=== PATIENT | female | born 1990 | race Hispanic/Latino ===

== ENCOUNTER 2019-04-15 22:29 | Emergency (ER) | payer SELFPAY ==
[~2019-04-15] VITALS: Ht 154.9 cm; Wt 94.8 kg
--- OUTSIDE RECORDS SUMMARY | 2019-04-15 22:32 | XMS REPORT | Clinical Summary ---
Author Author [facility] [place] [facility] Address Unknown Phone Unavailable Care Team Providers Care Supervisor Cloth Winding Name Role Phone Asked, No Pcp PCP Unavailable Allergies No Known Allergies Medications End Date Status Medication Sig Dispensed Refills Start Date 12/08/2018 Discontinued labetalol (NORMODYNE) 200 Take 2 120 tablet 0 MG tablet tablets (400 9 mg total) by mouth 2 (two) times a day for 30 days. 12/08/2018 Discontinued amLODIPine (NORVASC) 5 mg Take 1 tablet 30 tablet 0 tablet (5 mg total) 9 by mouth daily for 30 days. 01/05/2019 ferrous sulfate 325 (65 Take 1 tablet 90 tablet 0 FE) MG tablet (325 mg 9 total) by mouth 3 (three) times a day with meals for 30 days. 01/05/2019 docusate sodium (COLACE) Take 1 60 capsule 0 100 MG capsule capsule (100 9 mg total) by mouth 2 (two) times a day for 30 days. 01/05/2019 ibuprofen (ADVIL,MOTRIN) Take 1 tablet 30 tablet 0 600 MG tablet (600 mg 9 total) by mouth every 6 (six) hours as needed for moderate pain for up to 30 days. 01/07/2019 NIFEdipine XL (PROCARDIA Take 1 tablet 30 tablet 0 XL) 90 MG 24 hr tablet (90 mg total) 9 by mouth daily for 30 days. 12/15/2018 HYDROcodone-acetaminophen Take 1 tablet 30 tablet 0 (NORCO) 7.5-325 mg per by mouth 9 tablet every 6 (six) hours as needed for moderate pain for up to 7 days. Max Daily Amount: 4 tablets Active Problems Problem Noted Date Late care 12/08/2018 35 weeks gestation of 12/08/2018 Dichorionic diamniotic twin in third trimester 12/08/2018 12/02/2018 Encounters Care Team Description Date Type Specialty Volodymyr Soto MD 12/02/2018 Anesthesia Obstetrics and Gynecology Event Ailyn Mirza MD complication (Primary Dx); Postoperative complication of section; Pre-eclampsia, antepartum 12/02/2018 Hospital Obstetrics and Gynecology - Encounter 12/08/2018 Ailyn Mirza MD DELIVERY, 12/02/2018 Surgery Obstetrics and Gynecology after 04/14/2018 Immunizations Name Dates Previously Given Next Due FLUCELVAX QUAD PF (0.5mL 12/03/2018 syringe) Tdap 12/03/2018 Family History Relation Name Status Comments Brother Brother Alive Brother Alive Father Mother Alive Sister Alive Sister Alive Sister Alive Social History Date Tobacco Use Types Packs/Day Years Used Never Smoker Smokeless Tobacco: Never Used Alcohol Use Drinks/Week oz/Week Comments No Alcohol Habits Answer Date Recorded How often do you have a drink containing alcohol? Never 12/02/2018 How many drinks containing alcohol do you have on Not asked a typical day when you are drinking? How often do you have six or more drinks on one Not asked occasion? Sex Assigned at Date Recorded Not on file Industry Job Start Date Occupation Not on file Not on file Not on file Travel End Travel History Travel Start No recent travel history available. Last Filed Vital Signs Time Taken Vital Sign Reading 12/08/2018 8:58 AM THERAPY ADMINISTRATIVE ASSISTANT Blood Pressure 125/78 12/08/2018 8:56 AM THERAPY ADMINISTRATIVE ASSISTANT Pulse 97 12/08/2018 7:29 AM THERAPY ADMINISTRATIVE ASSISTANT Temperature 36.4 C (97.5 F) 12/08/2018 7:30 AM THERAPY ADMINISTRATIVE ASSISTANT Respiratory Rate 18 12/08/2018 6:16 AM THERAPY ADMINISTRATIVE ASSISTANT Oxygen Saturation 98% - Inhaled Oxygen - Concentration 12/02/2018 3:25 PM THERAPY ADMINISTRATIVE ASSISTANT Weight 99.8 kg (220 lb) 12/02/2018 3:25 PM THERAPY ADMINISTRATIVE ASSISTANT Height 154.9 cm (5' 1") 12/02/2018 3:25 PM THERAPY ADMINISTRATIVE ASSISTANT Body Mass Index 41.57 Plan of Treatment Health Maintenance Due Date Last Done Comments INFLUENZA VACCINE 05/15/2019 12/03/2018 Procedures Comments Procedure Name Priority Date/Time Associated Diagnosis HC COMPLETE BLD COUNT Routine 12/07/2018 W/AUTO DIFF 7:30 AM THERAPY ADMINISTRATIVE ASSISTANT HC COMPLETE BLD COUNT Routine 12/04/2018 W/AUTO DIFF 5:53 AM THERAPY ADMINISTRATIVE ASSISTANT MAGNESIUM, THERAPEUTIC Timed 12/03/2018 3:14 PM THERAPY ADMINISTRATIVE ASSISTANT MAGNESIUM, THERAPEUTIC Timed 12/03/2018 9:04 AM THERAPY ADMINISTRATIVE ASSISTANT HC COMPLETE BLD COUNT Routine 12/03/2018 W/AUTO DIFF 5:01 AM THERAPY ADMINISTRATIVE ASSISTANT MAGNESIUM, THERAPEUTIC Timed 12/03/2018 3:05 AM THERAPY ADMINISTRATIVE ASSISTANT URINE CULTURE Routine 12/02/2018 10:04 PM THERAPY ADMINISTRATIVE ASSISTANT GRAM STAIN Routine 12/02/2018 10:04 PM THERAPY ADMINISTRATIVE ASSISTANT MAGNESIUM, THERAPEUTIC Timed 12/02/2018 9:24 PM THERAPY ADMINISTRATIVE ASSISTANT HEMATOCRIT Routine 12/02/2018 9:24 PM THERAPY ADMINISTRATIVE ASSISTANT HEMOGLOBIN Routine 12/02/2018 9:24 PM THERAPY ADMINISTRATIVE ASSISTANT URINALYSIS SCREEN AND Routine 12/02/2018 MICROSCOPY, WITH REFLEX 9:00 PM THERAPY ADMINISTRATIVE ASSISTANT TO CULTURE TRANSFUSE RED BLOOD CELLS Routine 12/02/2018 7:18 PM THERAPY ADMINISTRATIVE ASSISTANT SURGICAL PATHOLOGY Routine 12/02/2018 REQUEST 5:59 PM THERAPY ADMINISTRATIVE ASSISTANT AK AN SPINAL BLOCK Routine 12/02/2018 POST-OP PAIN 5:52 PM THERAPY ADMINISTRATIVE ASSISTANT Procedure Note - Volodymyr Soto MD - 12/02/2018 5:52 PM THERAPY ADMINISTRATIVE ASSISTANT Spinal Block Date/Time: 12/02/2018 5:25 PM Performed by: Volodymyr Soto MD Authorized by: Volodymyr Soto MD Patient Location: OB Start Time: 12/02/2018 5:30 PM End Time: 12/02/2018 5:34 PM Reason for Block: post-op pain management , primary anesthetic Staff: Anesthesio logist: Volodymyr Soto MD Performed by: Anesthesio logist Preprocedu re: patient identified , IV checked, site and side verified, risks and benefits discussed, procedure verified, surgical consent complete, patient position confirmed, monitors and equipment checked, pre-op evaluation complete and coagulatio n status reviewed TIme Out Performed: 12/02/2018 5:30 PM Spinal Block: Patient Position: Sitting Prep: Betadine and patient draped Monitoring : Blood pressure monitoring , continuous pulse oximetry and heart rate Approach: Midline Interspace : L3-4 Injection Technique: Single injection Needle: Needle Type: Pencil-tip Needle Gauge: 25 G Assessment : Block assessment : No apparent complicati ons and patient tolerated procedure well Post procedure: Patient returned to supine position Medication s Administer ed Bupivacain e 0.75% PF (mL), 1.5 mL morPHINE 1 mg/mL PF, 0.2 mg CORD BLOOD GAS, VENOUS STAT 12/02/2018 5:52 PM THERAPY ADMINISTRATIVE ASSISTANT CORD BLOOD GAS, ARTERIAL STAT 12/02/2018 5:52 PM THERAPY ADMINISTRATIVE ASSISTANT CORD BLOOD GAS, ARTERIAL STAT 12/02/2018 5:50 PM THERAPY ADMINISTRATIVE ASSISTANT CORD BLOOD GAS, VENOUS STAT 12/02/2018 5:50 PM THERAPY ADMINISTRATIVE ASSISTANT TRANSFUSE RED BLOOD CELLS Routine 12/02/2018 5:48 PM THERAPY ADMINISTRATIVE ASSISTANT URINE DRUGS OF ABUSE Routine 12/02/2018 SCREEN 5:13 PM THERAPY ADMINISTRATIVE ASSISTANT US LIMITED STAT 12/02/2018 2:50 PM THERAPY ADMINISTRATIVE ASSISTANT US LIMITED STAT 12/02/2018 2:50 PM THERAPY ADMINISTRATIVE ASSISTANT PREPARE RBC STAT 12/02/2018 1:13 PM THERAPY ADMINISTRATIVE ASSISTANT PREPARE RBC STAT 12/02/2018 1:13 PM THERAPY ADMINISTRATIVE ASSISTANT RUBELLA AB IGG Routine 12/02/2018 1:13 PM THERAPY ADMINISTRATIVE ASSISTANT COMPREHENSIVE METABOLIC STAT 12/02/2018 PANEL 1:13 PM THERAPY ADMINISTRATIVE ASSISTANT PARTIAL THROMBOPLASTIN STAT 12/02/2018 TIME (PTT) 1:13 PM THERAPY ADMINISTRATIVE ASSISTANT ESTIMATED GFR STAT 12/02/2018 1:13 PM THERAPY ADMINISTRATIVE ASSISTANT HEPATITIS B SURFACE Routine 12/02/2018 ANTIGEN 1:13 PM THERAPY ADMINISTRATIVE ASSISTANT HIV 1, 2 ANTIBODY STAT 12/02/2018 1:13 PM THERAPY ADMINISTRATIVE ASSISTANT SYPHILIS TREPONEMAL IGG STAT 12/02/2018 1:13 PM THERAPY ADMINISTRATIVE ASSISTANT BASIC METABOLIC PANEL STAT 12/02/2018 1:13 PM THERAPY ADMINISTRATIVE ASSISTANT CBC HEMOGRAM STAT 12/02/2018 1:13 PM THERAPY ADMINISTRATIVE ASSISTANT TYPE AND SCREEN, STAT 12/02/2018 OBSTETRICAL PATIENT 1:13 PM THERAPY ADMINISTRATIVE ASSISTANT DELIVERY, 12/02/2018 Multiple Gestation Case Notes Pre-Eclamp manny, unknown twin gestation after 04/14/2018 Results * CBC with platelet and differential (12/07/2018 7:30 AM THERAPY ADMINISTRATIVE ASSISTANT) Only the most recent of 3 results within the time period is included. WBC 11.6 (H) 4.2 - 11.0 k/uL [facility] RBC 3.35 (L) 4.04 - 5.86 m/uL [facility] HGB 8.3 (L) 11.5 - 15.3 g/dL [facility] HCT 29.2 (L) 34.0 - 45.0 % [facility] MCV 87.2 80.0 - 98.0 fL [facility] MCH 24.8 (L) 27.0 - 34.0 pg [facility] MCHC 28.4 (L) 31.5 - 36.5 g/dL [facility] RDW - SD 58.2 (H) 37.0 - 51.0 fL [facility] MPV 9.6 7.4 - 10.4 fL [facility] Platelet count 269 150 - 400 k/uL [facility] Nucleated RBC 0.50 /100 WBC [facility] Neutrophils 63.0 36.0 - 66.0 % [facility] Lymphocytes 25.2 24.0 - 44.0 % [facility] Monocytes 6.1 (H) 0.0 - 6.0 % [facility] Eosinophils 2.5 0.0 - 6.0 % [facility] Basophils 0.3 0.0 - 1.2 % [facility] Immature 2.9 (H) 0.0 - 1.0 % [place] granulocytes [facility] Specimen Blood Performing Organization Address City/[facility]/Zipcode Phone Number [facility] DE[facility] [address] [place] [address] PATHOLOGY AND GENOMIC MEDICINE [address] * Magnesium, therapeutic (12/03/2018 3:14 PM THERAPY ADMINISTRATIVE ASSISTANT) Only the most recent of 4 results within the time period is included. Magnesium, 7.0 4.5 - 7.9 [place] therapeutic [facility] Specimen Plasma specimen Performing Organization Address [facility] [place] [address] PATHOLOGY AND GENOMIC MEDICINE [address] * Gram stain (12/02/2018 10:04 PM THERAPY ADMINISTRATIVE ASSISTANT) Gram stain No WBC's [place] result Rare Gram negative rods [facility] Comment: HOSPITAL Specimen Information Specimen Source: Urine Specimen Site: Clean catch Specimen Urine Performing Organization Address City/[facility] Phone Number [facility] DEPARTMENT OF [address] [place] [address] PATHOLOGY AND GENOMIC MEDICINE [place] [facility] [address] [place] [address] HOSPITAL * Urine culture (12/02/2018 10:04 PM THERAPY ADMINISTRATIVE ASSISTANT) Urine culture Escherichia coli [place] isolate colony count undetermined, [facility] probably due to inhibiting HOSPITAL substance. (A) Comment: Specimen Information Specimen Source: Urine Specimen Site: Clean catch Specimen Urine Antibiotic Method Susceptibility Organism Ampicillin STONE >16 mcg/mL: Resistant Escherichia coli Amoxicillin/Clavulanate STONE 8/4 mcg/mL: Susceptible Escherichia coli Amikacin STONE <=4 mcg/mL: Susceptible Escherichia coli Aztreonam STONE <=1 mcg/mL: Susceptible Escherichia coli Ceftazidime STONE <=0.5 mcg/mL: Susceptible Escherichia coli Ciprofloxacin STONE <=0.5 mcg/mL: Susceptible Escherichia coli Ceftriaxone STONE <=0.5 mcg/mL: Susceptible Escherichia coli Cefuroxime Sodium STONE <=4 mcg/mL: Susceptible Escherichia coli Cefazolin STONE 2 mcg/mL: Susceptible Escherichia coli Cefepime STONE <=0.5 mcg/mL: Susceptible Escherichia coli Nitrofurantoin STONE <=16 mcg/mL: Susceptible Escherichia coli Cefoxitin STONE <=4 mcg/mL: Susceptible Escherichia coli Gentamicin STONE <=1 mcg/mL: Susceptible Escherichia coli Imipenem STONE <=0.25 mcg/mL: Susceptible Escherichia coli Levofloxacin STONE <=1 mcg/mL: Susceptible Escherichia coli Meropenem STONE <=0.125 mcg/mL: Susceptible Escherichia coli Tobramycin STONE 1 mcg/mL: Susceptible Escherichia coli Ampicillin/Sulbactam STONE >16/8 mcg/mL: Resistant Escherichia coli Trimethoprim/Sulfamethoxazole STONE >2/38 mcg/mL: Resistant Escherichia coli Tetracycline STONE <=1 mcg/mL: Susceptible Escherichia coli Piperacillin/Tazobactam STONE 4/4 mcg/mL: Susceptible Escherichia coli Ertapenem STONE <=0.125 mcg/mL: Susceptible Escherichia coli Tigecycline STONE <=0.5 mcg/mL: Susceptible Escherichia coli Performing Organization Address City/[facility]/Zipcode Phone Number [facility] DEPARTMENT [address] [place] [address] PATHOLOGY AND GENOMIC MEDICINE [address] * Hemoglobin (12/02/2018 9:24 PM THERAPY ADMINISTRATIVE ASSISTANT) HGB 9.3 (L) 11.5 - 15.3 g/dL [place] Comment: [facility] repeat 9.4 [facility] blood [facility] Specimen Blood Performing Organization Address City/[facility]/Zipcode Phone Number [facility] DEPARTMENT OF [address] [place] [address] PATHOLOGY AND GENOMIC MEDICINE [facility] [address] * Hematocrit (12/02/2018 9:24 PM THERAPY ADMINISTRATIVE ASSISTANT) HCT 32.0 (L) 34.0 - 45.0 % [facility] Specimen Blood Performing Organization Address City/[facility]/Zipcode Phone Number [facility] DEPARTMENT OF [address] [facility] [place] [address] PATHOLOGY AND GENOMIC MEDICINE [facility] [address] * Urinalysis screen and microscopy, with reflex to culture (12/02/2018 9:00 PM THERAPY ADMINISTRATIVE ASSISTANT) Specimen site Clean catch [facility] Color, UA Yellow [facility] Appearance, UA Slightly-Cloudy [facility] Specific 1.020 1.001 - 1.035 [place] gravity, [facility] pH, UA 6.0 5.0 - 8.5 [facility] Protein, UA 1+ (A) Negative [facility] Glucose, UA Negative Negative [facility] Ketones, UA Negative Negative [facility] Bilirubin, UA Negative Negative [facility] Blood, UA Moderate (A) Negative [facility] Nitrite, UA Negative Negative [facility] Urobilinogen, Negative <2.0 [facility] Leukocyte Large (A) Negative [place] esterase, [facility] Epithelial Few /HPF [place] cells, [facility] WBC, UA 87 (H) 0 - 5 /HPF [facility] RBC, UA 40 (A) 0 - 5 /HPF [facility] Bacteria, UA Trace None seen [facility] Yeast, UA None seen [facility] Yeast with None seen [place] [facility] Amorphous Few [place] crystals [facility] Hyaline casts, 5 /LPF [facility] Specimen Urine Performing Organization Address City/State/Zipcode Phone Number [facility] DEPARTMENT OF [facility] [place] [address] PATHOLOGY AND GENOMIC MEDICINE [facility] Damien [address] * Surgical pathology request (12/02/2018 5:59 PM THERAPY ADMINISTRATIVE ASSISTANT) [facility] DE[facility] OF PATHOLOGY AND GENOMIC MEDICINE Surgical See link below for PDF Lab [facility] DE[facility] pathology Report OF PATHOLOGY report AND GENOMIC MEDICINE Result status This is Final Report for [facility] DE[facility] [id number] OF PATHOLOGY AND GENOMIC MEDICINE Specimen Performing Organization Address City/State/Zipcode Phone Number [facility] DEPARTMENT OF [address] [place] [address] PATHOLOGY AND GENOMIC MEDICINE * Cord blood gas, arterial (12/02/2018 5:52 PM THERAPY ADMINISTRATIVE ASSISTANT) Only the most recent of 2 results within the time period is included. Underwater Photographer DAIN [facility] Collection site CORD BLOOD BABY B [facility] pH, cord 7.28 7.13 - 7.43 [place] arterial Comment: [facility] CORD BLOOD GAS SPECIMEN [facility] reference ranges apply HOSPITAL to pH, PO2, PCO2 and Base deficit. pCO2, cord 52 30 - 60 mmHg [place] arterial [facility] pO2, cord <0 mmHg [place] arterial [facility] O2 saturation, 16 (LL)Comment: NOT REPORTED % [place] cord arterial CRITICAL [facility] Base excess, -2 mEq/L [place] arterial, cord [facility] Bicarbonate, 24.4 21.0 - 28.0 mmol/L [place] arterial, cord [facility] O2 content 3.4 VOL% [facility] Carboxyhemoglob 1.2 0.0 - 1.4 % [place] in Comment: [facility] Reference Ranges: [facility] Carboxyhemoglobin [facility] Non smoker: 0.0 - 2.0% Smoker: 2.1 - 5.0% Heavy smoker: 5.1 - 9% Methemoglobin 2.4 (H) 0.0 - 1.0 % [facility] Hemoglobin, 15.2 12.0 - 16.0 g/dL [place] blood gas [facility] pO2, A-a 80.1 mmHg [facility] Specimen Blood Narrative Performed At BABY B [facility] DE[facility] OF PATHOLOGY AND GENOMIC MEDICINE Performing Organization Address City/State/Zipcode Phone Number [facility] DEPARTMENT OF [address] [place] [address] PATHOLOGY AND GENOMIC MEDICINE [facility] Damien[address] [place], [place] [id number] [place] [address] * Cord blood gas, venous (12/02/2018 5:52 PM THERAPY ADMINISTRATIVE ASSISTANT) Only the most recent of 2 results within the time period is included. pH, cord venous 7.28 7.19 - 7.49 mL [facility] pCO2, cord 51 (H) 27 - 43 mmHg [place] venous [facility] pO2, cord 16 15 - 45 mmHg [place] venous [facility] O2 saturation, 28 % [place] cord venous [facility] Base excess, -3 (L) 1 - 9 mEq/L [place] venous, cord [facility] Bicarbonate, 24.0 21.0 - 28.0 mmol/L [place] venous, cord [facility] Specimen Narrative Performed At [facility] B [facility] DE[facility] OF PATHOLOGY AND GENOMIC MEDICINE Performing Organization Address City/[facility] Phone Number [facility] [place] [address] PATHOLOGY AND GENOMIC MEDICINE [address] * Transfuse RBC (12/02/2018 5:48 PM THERAPY ADMINISTRATIVE ASSISTANT) Only the most recent of 2 results within the time period is included. * Urine drugs of abuse screen (12/02/2018 5:13 PM THERAPY ADMINISTRATIVE ASSISTANT) Amphetamine Negative [place] screen, urine [facility] Barbiturate Negative [place] screen, urine [facility] Benzodiazepine Negative [place] screen, urine [facility] Cannabinoid Negative [place] screen, urine [facility] Cocaine screen, Negative [place] urine [facility] Methadone Negative [place] metabolite [facility] (ED[facility]), urine [facility] Opiates screen, Negative [place] urine [facility] Phencyclidine Negative [place] screen, urine [facility] Specimen Urine Performing Organization Address City/State/Zipcode Phone Number [facility] DEPART[facility] [place] [address] [place] [address] PATHOLOGY AND GENOMIC MEDICINE [place] [address] [address] * US Limited (12/02/2018 2:50 PM THERAPY ADMINISTRATIVE ASSISTANT) Only the most recent of 2 results within the time period is included. Specimen Narrative Performed At Examination: US LIMITED, US LIMITED [facility] Reason for examination:no carefetal well being Comparison:None Multiple sonographic images of the gravid uterus are obtained using real-time ultrasonography. IMPRESSION: 'This is a twin gestation. Twin A: Twin A is on the maternal left. Twin A is in a breech presentation. Positive heart tones are present 158 beats for minute. There is limited views of the anatomy. The SD ratio is 2.3. There are limited views of the placenta. The TONEY is 8.1. The estimated weight is 5 lbs. 3 oz. The placenta is posterior and fundal. The estimated gestational age is 33 weeks and 5 days. TWIN B: Twin B is located on the maternal right. The estimated weight is 5 lbs. 14 oz. The SD ratios 2.6. Positive heart tones are present at 154 bpm. The current presentation is breech. The placenta is posterior and fundal. The TONEY is 8.1. [id number] Procedure Note Hm Interface, Radiology Results Incoming - 12/02/2018 3:28 PM THERAPY ADMINISTRATIVE ASSISTANT Examination: US LIMITED, US LIMITED Reason for examination: no care well being Comparison: None Multiple sonographic images of the gravid uterus are obtained using real-time ultrasonography. IMPRESSION: 'This is a twin gestation. Twin A: Twin A is on the maternal left. Twin A is in a breech presentation. Positive heart tones are present 158 beats for minute. There is limited views of the anatomy. The SD ratio is 2.3. There are limited views of the placenta. The TONEY is 8.1. The estimated weight is 5 lbs. 3 oz. The placenta is posterior and fundal. The estimated gestational age is 33 weeks and 5 days. TWIN B: Twin B is located on the maternal right. The estimated weight is 5 lbs. 14 oz. The SD ratios 2.6. Positive heart tones are present at 154 bpm. The current presentation is breech. The placenta is posterior and fundal. The TONEY is 8.1. [id number] Performing Organization Address City/State/Zipcode Phone Number [facility] [address] [place] [address] * Syphilis treponemal IgG (12/02/2018 1:13 PM THERAPY ADMINISTRATIVE ASSISTANT) Pathologist [facility] Syphilis Non-reactiveComment: Non-reactive [place] treponemal IgG Non-reactive: No serological [facility] evidence of Syphilis infection HOSPITAL Specimen Serum Performing Organization Address City/[facility]/Zipcode Phone Number [facility] DEPARTMENT OF [address] [place] [address] PATHOLOGY AND [facility] MEDICINE [facility] [address] [place] [address] HOSPITAL * Estimated GFR (12/02/2018 1:13 PM THERAPY ADMINISTRATIVE ASSISTANT) [facility] Estimated GFR >=90 mL/min/1.73 m2 [place] Comment: [facility] G1 >=90 Normal or high G2 60-89Mildly decreased [id number] Mildly to moderately decreased [id number] Moderately to severely decreased G4 15-29Severely decreased G5 <15Kidney failure The eGFR was calculated using the Chronic Kidney Disease Epidemiology Collaboration (CKD-EPI) equation. Interpretation is based on recommendations of the National Kidney Foundation-Kidney Disease Outcomes Quality Initiative (NKF-KDOQI) published in 2014. Specimen Plasma specimen Performing Organization Address City/[facility] Cent[facility] Phone Number [facility] DEPART[facility] OF [address] [place] [address] PATHOLOGY AND [place] [address] * Type and screen, obstetrical patient (12/02/2018 1:13 PM THERAPY ADMINISTRATIVE ASSISTANT) [facility] ABO grouping O [facility] Rh type POS [facility] Antibody screen NEG [place] (gel) [facility] Specimen Blood Performing Organization Address City/[facility]/Zipcode Phone Number [facility] DEPARTMENT OF [address] [place] [phone] PATHOLOGY AND [facility] MEDICINE [place] [address] * Rubella Ab IgG (12/02/2018 1:13 PM THERAPY ADMINISTRATIVE ASSISTANT) [facility] Rubella IgG Positive (A) Non-reactive [place] antibody [facility] Specimen Blood Performing Organization Address City/[facility]/Zipcode Phone Number [facility] DEPARTMENT OF [address] [place] [phone] PATHOLOGY AND GENOMIC MEDICINE [facility] [address] [facility] * HIV 1, 2 antibody (12/02/2018 1:13 PM THERAPY ADMINISTRATIVE ASSISTANT) [facility] HIV 1, 2 Non-Reactive Non-reactive [place] antibody Comment: [facility] Starting from January 11 2016, [facility] 4th generation HIV screening HOSPITAL and confirmation assays are in use at [facility], consistent with the CDC-recommended algorithm. The screening test detects antibodies to HIV-1, HIV-2 and the p24 antigen. Positive screening results will be automatically reflexed to a HIV-1/HIV-2 differentiation assay. Indeterminant HIV-1 results will be further automatically reflexed to a nucleic acid test for detection of acute infection. Western blot will no longer be performed as a confirmation test. For a quick reference guide on the testing algorithm, please refer to: http://stacks.cdc.gov/view/cdc /40376. Specimen Blood Performing Organization Address City/[facility] Phone Number [facility] DEPARTMENT OF [address] [place] [address] PATHOLOGY AND [facility] MEDICINE [address] * Hepatitis B surface antigen (12/02/2018 1:13 PM THERAPY ADMINISTRATIVE ASSISTANT) [facility] Hepatitis B Non-reactive Non-reactive [place] surface Ag [facility] Specimen Blood Performing Organization Address [facility] Cent[facility]owa Phone Number [facility] DEPARTMENT OF [address] [place] [address] PATHOLOGY AND [facility] MEDICINE [place] [id number] [address] * Partial thromboplastin time, activated (12/02/2018 1:13 PM THERAPY ADMINISTRATIVE ASSISTANT) [facility] PTT 29.9 23.0 - 36.0 sec [place] Comment: [facility] PTT therapeutic range for [facility] unfractionated heparin is HOSPITAL 61.0-112.0 seconds which corresponds to Anti-Xa 0.3-0.7 U/ml. Note:Change in Panic Value The PTT Panic Value is changing from 110 sec. to 100 sec. due to new instrumentation and reagents. Correlation studies have been performed to validate this result. Specimen Blood Performing Organization Address [facility]/Zipcode Phone Number [facility] DEPARTMENT OF [address] [place] [address] PATHOLOGY AND GENOMIC MEDICINE [facility] [address] * CBC hemogram (12/02/2018 1:13 PM THERAPY ADMINISTRATIVE ASSISTANT) Pathologist [facility] WBC 12.7 (H)Comment: WBC was 4.2 - 11.0 k/uL [place] corrected for NRBCs [facility] RBC 2.88 (L) 4.04 - 5.86 m/uL [facility] HGB 6.2 (LL) 11.5 - 15.3 g/dL [place] Comment: [facility] Results called to and read [facility] back by ___REENA MILLER RN [facility] at12/02/201813:48 (date/time) by SM__. HCT 23.4 (L) 34.0 - 45.0 % [facility] MCV 81.3 80.0 - 98.0 fL [facility] MCH 21.5 (L) 27.0 - 34.0 pg [facility] MCHC 26.5 (L) 31.5 - 36.5 g/dL [facility] RDW - SD 54.7 (H) 37.0 - 51.0 fL [facility] MPV 10.5 (H) 7.4 - 10.4 fL [facility] Platelet count 299 150 - 400 k/uL [facility] Nucleated RBC 2.20 /100 WBC [facility] Specimen Blood Performing Organization Address City/State/Zipcode Phone Number [facility] [address] [place] [address] PATHOLOGY AND GENOMIC MEDICINE [place] [id number] [place] [address] * Prepare RBC, 4 Units (12/02/2018 1:13 PM THERAPY ADMINISTRATIVE ASSISTANT) Only the most recent of 2 results within the time period is included. [facility] Product name Red Blood Cells -1, Leukored [facility] Unit number [id number] [facility] Product code [id number] [facility] Dispense status Transfused [facility] Blood [id number] [place] expiration date [facility] Blood type code 5100 [facility] Blood type O POSITIVE [facility] Product name Red Blood Cells -1, Leukored [facility] Unit number [id number] [facility] Product code [id number] [facility] Dispense status Transfused [facility] Blood [id number] [place] expiration date [facility] Blood type code 5100 [facility] Blood type O POSITIVE [facility] Specimen Blood Performing Organization Address City/State/Zipcode Phone Number [facility] DEPARTMENT OF [address] [place] [address] [place] [address] PATHOLOGY AND GENOMIC MEDICINE [address] * Comprehensive metabolic panel (12/02/2018 1:13 PM THERAPY ADMINISTRATIVE ASSISTANT) Sodium 140 135 - 150 mEq/L [facility] Potassium 4.0 3.5 - 5.0 mEq/L [facility] Chloride 103 98 - 112 mEq/L [facility] CO2 21 (L) 24 - 31 mmol/L [facility] Anion gap 16@ANIO (H) 7 - 15 mEq/L [facility] BUN 4 (L) 7 - 18 mg/dL [facility] Creatinine 0.70 0.50 - 0.90 mg/dL [facility] Glucose 76 65 - 100 mg/dL [facility] Calcium 8.5 8.3 - 10.2 mg/dL [facility] Protein 6.7 6.3 - 8.3 g/dL [facility] Albumin 2.4 (L) 3.5 - 5.0 g/dL [facility] A/G ratio 0.6 (L) 0.7 - 3.8 [facility] Alkaline 179 (H) 0 - 104 U/L [place] phosphatase [facility] AST 30 10 - 35 U/L [facility] ALT 10 5 - 50 U/L [facility] Total bilirubin 1.5 (H) 0.2 - 1.2 mg/dL [facility] Specimen Plasma specimen Performing Organization Address City/[facility]ode Phone Number [facility] DE[facility] OF [address] [place] [address] PATHOLOGY AND GENOMIC MEDICINE [facility] [address]ien[address] * Basic metabolic panel (12/02/2018 1:13 PM THERAPY ADMINISTRATIVE ASSISTANT) Sodium 140 135 - 150 mEq/L [facility] Potassium 4.0 3.5 - 5.0 mEq/L [facility] Chloride 103 98 - 112 mEq/L [facility] CO2 21 (L) 24 - 31 mmol/L [facility] Anion gap 16@ANIO (H) 7 - 15 mEq/L [facility] BUN 4 (L) 7 - 18 mg/dL [facility] Creatinine 0.70 0.50 - 0.90 mg/dL [facility] Glucose 76 65 - 100 mg/dL [facility] Calcium 8.5 8.3 - 10.2 mg/dL [facility] Specimen Plasma specimen Performing Organization Address City/[facility] Centercode Phone Number [facility] DE[facility] [address] [place] [address] PATHOLOGY AND GENOMIC MEDICINE [facility] Damien [address] Talyor [address] after 04/14/2018 Insurance Type Payer Benefit Subscriber ID Effective Phone Address Plan / Dates Group Medicaid MEDICAID MEDICAID xxxxxxxxx 2018- Present Advance Directives Patient has advance care planning documents, and code status on file. For more i nformation, please contact: Ford Hatfield [address] [place] [address] Date Inactivated Comments Code Status Date Activated 12/08/2018 4:28 PM Full Code 12/02/2018 12:25 PM Code Status decision reached by: Patient
--- OUTSIDE RECORDS SUMMARY | 2019-04-15 22:33 | XMS REPORT ---
Author Author Admin, [place] Organization [facility] Address [address] [place] [address] Phone Allergies, Adverse Reactions, Alerts Allergy Name Reaction Description Start Date Severity Status Provider Allergies Unknown Conditions or Problems Problem Name Problem Code Onset Date Status Entry Date Provider Comment Standard Description Annotate Problems Unknown Medication List Medication Instructions Start Date Stop Date Generic Name NDC Status Provider Patient Instruction Drug Treatment Unknown - unknown Diagnostic Results Date Name Value Unit Range Description Internal Other: - Chemistry beta HCG, urine, semiquantitative positive
[2019-04-15] MEDS ORDERED: ONDANSETRON HCL INJ 2MG/ML 2ML 2 MG/ML VIAL IV STA (23:05)
[2019-04-15] MEDS ORDERED: SODIUM CHLORIDE 0.9% 1000ML 1,000 ML IV ONE (23:15)
[2019-04-15] MEDS ORDERED: SODIUM CHLORIDE 0.9% 1000ML 1,000 ML ONE (23:32)
[2019-04-15] MEDS ORDERED: MORPHINE SULFATE INJ 4 MG/ML INJ 1ML IV ONE (23:45)
[2019-04-16] MEDS ORDERED: IOPAMIDOL 370 MG/ML 200 ML INFUS..BTL INJ ONE (00:10)
[2019-04-16] MEDS ORDERED: SODIUM CHLORIDE 0.9% 50ML 50 ML ONE (00:10)
--- NOTE | 2019-04-16 00:53 | Diagnostic Imaging Report ---
CT Abdomen And Pelvis with Intravenous Contrast INDICATION: Right upper quadrant pain, nausea, vomiting TECHNIQUE: Thin collimation axial images obtained from the diaphragm to the level of the pubic symphysis following the uneventful administration of 100 cc of low osmolar, nonionic intravenous contrast. Dose reduction techniques used: Automated exposure control, adjustment of the mAs and/or kVp according to patient size, standardized low-dose protocol, and/or iterative reconstruction technique. RADIATION DOSE: Total DLP: 785.44 mGy*cm Estimated effective dose: (DLP x 0.015 x size factor) mSv CTDIvol has been reviewed. It is below the limits set by the Radiation Protocol Committee (RPC). COMPARISON: None. ABDOMEN FINDINGS: Lung Bases: Clear. The visualized portions of the mediastinum are normal.. Liver: Normal attenuation. No evidence for mass. Gallbladder: Present and is distended. The phelps are mildly thickened. There is a cluster of sludge or small stones in the dependent portion. No pericholecystic inflammation. Biliary tree: No biliary ductal dilatation. Pancreas: Normal attenuation without mass or ductal dilatation. Spleen: Normal in size. No evidence of mass.. Adrenal Glands: No evidence for mass. Kidneys: Right: Normal enhancement. No soft tissue mass. No hydronephrosis. Left: Normal enhancement. No soft tissue mass. No hydronephrosis. Lymph Nodes: No lymphadenopathy. Aorta: Normal in diameter. PELVIS FINDINGS: Bowel: Stomach: Normal in caliber with normal wall thickness. Small Bowel: Normal in caliber with normal wall thickness. Large Bowel: Diverticulosis coli, particularly in the sigmoid colon. No associated inflammation. Large bowel is normal in diameter. Appendix: Normal appendix. Bladder: Normal. The uterus is present and normal in morphology. No adnexal mass. Peritoneum/retroperitoneum: No free fluid or fluid collection. Bones: Unremarkable for age. Soft tissues: Unremarkable. IMPRESSION: 1. Distended gallbladder containing sludge/small stones are mildly thickened phelps. Please correlate for signs/symptoms of acute cholecystitis. Normal biliary tree. 2. Diverticulosis coli. No evidence for bowel obstruction or inflammation. Signed by: Dr. Garry Feng MD on 04/16/2019 12:49 AM
--- NOTE | 2019-04-16 01:42 | Diagnostic Imaging Report ---
HISTORY: Abdominal pain ^[id number] ^0100 TECHNIQUE: Selected images from limited abdominal ultrasound provided for INTERPRETATION: COMPARISON: CT abdomen/pelvis 04/16/2019. FINDINGS: Pancreas: Visualized portions are normal. No ductal dilatation. Liver: Measures 14.8 cm in sagittal plane. The echotexture is normal. No mass in the visualized portions. Portal Vein: Measures 0.9 cm. Proper directional flow on spectral Doppler interrogation. Biliary Tree: Normal Gallbladder: Present and is distended measuring 12.3 cm in length. It contains subcentimeter stones in the fundus. The gallbladder phelps are prominent measuring up to 5 mm. No pericholecystic fluid. Sonographic Collins sign is negative. CBD: 0.3 cm. Right Kidney: 11.8 cm in greatest length. The echotexture is normal. There is no evidence for mass. There is no collecting system dilatation or evidence of obstruction. No renal calculi evident. No adjacent free fluid or fluid collections. Visualized IVC and aorta are normal. There is no free fluid. IMPRESSION: Distended gallbladder containing multiple stones. Diffuse mild gallbladder wall thickening without pericholecystic fluid or sonographic Collins sign. Findings are inconclusive for acute cholecystitis. Please correlate with clinical exam findings. Normal biliary tree. Signed by: Dr. Garry Feng MD on 04/16/2019 1:39 AM
[2019-04-16] MEDS ORDERED: MORPHINE SULFATE INJ 10 MG/ML IV ONE (02:15)
[2019-04-16] MEDS ORDERED: MORPHINE SULFATE INJ 4 MG/ML INJ 1ML IV PRN (02:15)
[2019-04-16] MEDS ORDERED: MORPHINE SULFATE INJ 4 MG/ML INJ 1ML ONE (02:15)
[2019-04-16] MEDS ORDERED: PIPER-TAZ 3.375 GM 50 ML IV ONE (03:00)
[2019-04-16] MEDS ORDERED: SODIUM CHLORIDE 0.9% 1000ML 1,000 ML IV ONE (03:00)
[2019-04-16] MEDS ORDERED: SODIUM CHLORIDE 0.9% 1000ML 1,000 ML ONE (03:52)
== END 2019-04-16 04:30 | disposition other institution (70) ==
LOC: FSED 22:29
DX: R10.13 Epigastric pain (principal); R11.0 Nausea; K80.00 Calculus of gallbladder with acute cholecystitis without obstruction; I10 Essential (primary) hypertension
CPT/HCPCS: 74177; 76705; 80048; 80076; 81003; 81025; 85025; 99284; J2270 ×2; J2405; J2543; J7030 ×2; Q9967